=== PATIENT | female | born 1935 | race Two or more races ===

== ENCOUNTER 2020-08-14 08:49 | Day surgery (SDC) | payer OTHER ==
[2020-08-11 17:15] VITALS: BMI 26.9
[2020-08-14] MEDS ORDERED: CYCLOPENTOLATE 2% OPHTH SOLN 2 ML BOTTLE ONE (10:10)
[2020-08-14] MEDS ORDERED: TROPICAMIDE 1% OPHTH SOLN 15 ML BOTTLE ONE (10:11)
[2020-08-14] MEDS ORDERED: CIPROFLOXACIN 0.3% EYE DROPS 5 ML BOTTLE ONE (10:11)
[2020-08-14] MEDS ORDERED: PHENYLEPHRINE 2.5% OPHTH SOLN 15 ML BOTTLE ONE (10:11)
[2020-08-14] MEDS ORDERED: TETRACAINE 0.5% OPHTH SOLN 2 ML BOTTLE ONE ×2 (10:11→11:05)
[2020-08-14] MEDS ORDERED: BETAXOLOL HCL 0.25% OPHTHALMIC 10 ML DROPSBTL ONE (11:04)
[2020-08-14] MEDS ORDERED: EPINEPHrine/PF 1 MG/1 ML (1:1,000) AMPULE ONE (11:04)
[2020-08-14] MEDS ORDERED: POVIDONE-IODINE 5% OPHTHALMIC PREP 30 ML SOLUTION ONE (11:05)
[2020-08-14] MEDS ORDERED: EPI-SHUGARCAINE (EPINEPHRINE 0.025% & LIDOCAINE-PF 0.75%) 4ML ONE (11:05)
[2020-08-14] MEDS ORDERED: ACETYLCHOLINE 1:100 INTRA-OCUL 20 MG/2 ML KIT ONE (11:05)
[2020-08-14] MEDS ORDERED: TRYPAN BLUE 0.5 ML DISP.SYRIN ONE (11:05)
[2020-08-14] MEDS ORDERED: KETOROLAC TROMETHAMINE 30 MG/1 ML VIAL ONE (11:26)
[2020-08-14] MEDS ORDERED: MIDAZOLAM HCL 2 MG/2 ML SINGLE DOSE VIAL ONE (11:27)
[2020-08-14] MEDS ORDERED: CARBACHOL 0.01% INTRA-OCULAR 1.5 ML VIAL ONE (11:46)
[2020-08-14 13:36] VITALS: TEMP 97.7
[2020-08-14 13:41] VITALS: BP 133/55; PULSE 69
[2020-08-14] MEDS ORDERED: CEFUROXIME SODIUM 3 MG/0.3 ML OPHTHALMIC SYRINGE ONE (14:25)
== END 2020-08-14 13:00 | disposition home or self-care (01) ==
LOC: FASU 08:49
PROVIDERS: ATTEND Ophthalmology
PROC: 08RK3JZ Replacement of Left Lens with Synthetic Substitute, Percutaneous Approach (ICD-10-PCS; principal; 2020-08-14 11:30)
DX: H25.89 Other age-related cataract (principal)